=== PATIENT | male | born 1955 | race Caucasian/White ===

== ENCOUNTER 2024-12-16 00:50 | Outpatient (CLI) | payer MEDICARE, SELFPAY ==
--- NOTE | 2024-12-16 | DI.NM_ITS ---
APPROVED REPORT Exam: Pharmacologic Patient Location: Out-Patient Room/Bed: Stress Nurse: Miri Zheng RN Ordering Provider:ERICKushal MANZANARES, Contact Number: [phone] BMI: 26.30 Baseline Rhythm: Sinus Bradycardia Comment: Non-specific ST-T abnormalities; Rare PVC's. Indications: Abnormal EKG. Medical History Medical History: HLD; Cold Autoimmune Hemolytic Anemia; Non-toxic Multinodular Goiter. Cardiac Medications: Finasteride; Tamsulosin; Timolol Maleate. Allergies: None. Cardiac Risk Factors: Family Hx; HLD. Previous Cardiac Procedures: None. Pretest Chest Pain Characteristics: None. Exercise History: Physically active. Physical Disabilities: Left Hip Discomfort/Pain. Lung Sounds: Clear bilaterally throughout, anterior and posterior. Heart Sounds: S1 and S2 auscultated. Stress Test Details Test: Pharmacologic stress was paired with low level exercise. Reason for pharmacologic stress test: physical limitation. Nuclear Acquisition: Rest Tc-99m/Stress Tc-99m 1 day Rest Isotope: Tc-99m Sestamibi. Dose: 8.0 Date: 12/16/2024 Injection Time: 1100 Stress Isotope: Tc-99m Sestamibi. Dose: 26.0 Date: 12/16/2024 Injection Time: 1308 HR Resting HR Supine: 55 bpm Max Heart Rate (APMHR): 151 bpm Resting HR Standin bpm Target HR (85% APMHR): 128 bpm Max HR Achieved: 103 bpm % of APMHR: 68 Recovery HR: 69 bpm HR response to stress: Normal HR response to stress. BP Resting BP Supine: 174/102 mmHg Resting BP Standin/106 mmHg Max BP: 174/106 mmHg Recovery BP: 160/100 mmHg BP response to stress: Abnormal hypertensive response to stress. ECG Resting ECG: Sinus Bradycardia; nonspecific ST-T abnormalities. Ectopy: Rare PVC's. Stress ECG: Sinus Rhythm; nonspecific ST-T abnormalities. ST Change: Nondiagnostic low heart rate. Arrhythmia: None. Recovery ECG: Sinus Rhythm; nonspecific ST-T abnormalities. Recovery ST Change: Nondiagnostic low heart rate. Recovery Arrhythmia: None. Clinical Stress Symptoms: None. Angina Score: None Rate Pressure Product: [id number] Stress ECG Conclusion 1. Resting electrocardiogram showed minor nonspecific ST abnormalities 2. Patient underwent testing using pharmacologic stress with regadenoson 3. Peak heart rate achieved was 68% of maximal predicted for age 4. The electrocardiographic portion of the test was nondiagnostic 5. See MPI report Stress Test Summary STAGE HR BP SpO2 Symptoms NOTES Supine 55 174/102 98 Standing 58 174/106 98 1 min post Lexiscan injection 100 142/102 97 3 min post Lexiscan injection 76 170/100 98 6 min post Lexiscan injection 69 160/100 97 Pt. was conversing pleasantly with nursing staff upon leaving the Stress Lab. Pt. left ambulatory in no apparent distress. MPI Conclusion Myocardial perfusion is normal. There is no ischemia or evidence of prior infarction Ejection fraction appears within the range of normal, with normal wall motion
[2024-12-16] MEDS: Regadenoson 0.4 MG/5 ML SYR IVP (13:07)
== END 2024-12-16 01:10 ==
PROVIDERS: PCP Family Medicine; Visit Provider Family Medicine
DX: R94.31 Abnormal electrocardiogram [ECG] [EKG] (principal)
CPT/HCPCS: 78452; 93017; J2785